=== PATIENT | female | born 1945 | race Caucasian/White ===

== ENCOUNTER → 2023-07-30 12:48 | Outpatient (REF) | payer OTHER, SELFPAY | LOC: RAD 12:48 | PROVIDERS: ATTENDING PHYSICIAN Obstetrics & Gynecology; FAMILY PHYSICIAN Family Medicine | DX: N95.0 Postmenopausal bleeding (principal) | CPT/HCPCS: 76830; 76856 ==

== ENCOUNTER → 2023-09-10 07:31 | Outpatient (REF) | payer OTHER, SELFPAY | LOC: PAVMRI 07:31 | PROVIDERS: ATTENDING PHYSICIAN Obstetrics & Gynecology; FAMILY PHYSICIAN Family Medicine | DX: R19.00 Intra-abdominal and pelvic swelling, mass and lump, unspecified site (principal) | CPT/HCPCS: 72197; A9575 ==

== ENCOUNTER → 2024-05-07 14:39 | Outpatient (REF) | payer OTHER, SELFPAY | LOC: WDC 14:39 | PROVIDERS: ATTENDING PHYSICIAN Obstetrics & Gynecology; FAMILY PHYSICIAN Family Medicine | DX: Z12.31 Encounter for screening mammogram for malignant neoplasm of breast (principal) | CPT/HCPCS: 77063; 77067 ==

== ENCOUNTER 2024-11-12 10:42 | Emergency (ER) | payer OTHER, SELFPAY ==
[2024-11-12 10:43] VITALS: BP 187/92
--- NOTE | 2024-11-12 12:18 | ED.GENMED ---
History of Present Illness
General
Chief Complaint: Fall
Time Seen by Provider: 11/12/24 11:18
History of Present Illness
History of Present Illness:
79-year-old female with history of hypertension and hyperlipidemia presents to the emergency department for Evaluation of amnesia and a fall in the middle of the night. She states she awoke this morning lying perpendicular to her bed on the floor
with bleeding coming from the mouth but she has no recollection of how this occurred. She denies any other injuries or pain. She was able to get herself up and back to bed. Does not take anticoagulants. Currently denies neck pain, chest pain,
shortness of breath, recent fevers, or extremity discomfort
Review of Systems
Review of Systems
Allergies reviewed?: Yes
All Other Systems: ROS reviewed and negative except as documented in HPI and ROS
Phy Exam
Physical Exam
Physical Exam:
GEN: Well appearing, NAD, WDWN
HEENT: Oral mucosa moist, no scleral icterus, no nasal congestion. Superficial wound to the inner lower lip with no active bleeding, no dental injury
Cardiac: Regular rate
Lung: No respiratory distress, no tachypnea
MSK: No gross deformity or injuries, no cervical, thoracic, or lumbar spinal tenderness. Pelvis is stable with no crepitus
Skin: Good color, no pallor or jaundice, no rashes
Neuro: AO x3; CN II-XII grossly intact. BUE strength 5/5 in all hardy, sensation intact and symmetric. BLE strength 5/5 in all hardy, sensation intact and symmetric
Psych: Calm, cooperative
Course
Orders/Labs/Results
Orders:
Orders
11/12/24 11:32
CT Head W/o Iv Contrast Urgent
Comment:
Reason For Exam: fall, amnesia
Vital Signs
Initial and Last Documented VS:
Initial Vital Signs
Temp Pulse Resp BP Pulse Ox
98.0 F 88 18 187/92 99
11/12/24 10:43 11/12/24 10:43 11/12/24 10:43 11/12/24 10:43 11/12/24 10:43
Last Documented Vital Signs
Temp Pulse Resp BP Pulse Ox
98.0 F 88 17 187/92 99
11/12/24 10:43 11/12/24 10:43 11/12/24 12:40 11/12/24 10:43 11/12/24 12:19
MDM/Problems Addressed
MDM/Problems Addressed:
CT of the head shows no acute traumatic findings. She is neurologically intact. I suspect she had a fall in the middle of the night with retrograde amnesia due to blunt head injury. Clinically appears well with no neurologic findings at this
time. Suitable for discharge home
*Pulse Oximetry
SaO2: 99
Oxygen Mode of Delivery: Room air
Patient hypoxic: no
*Critical Care Note
Total Time (30-74mins, 75-104mins- exclusive of procedures): Not Applicable
ED Attending Note
-
Portions of this chart may have been created with voice recognition software.� Occasional wrong word or��sound alike� substitutions may have occurred due to the inherent limitations of voice recognition software.
Discharge Plan
Departure
Patient Disposition: Home (Routine Discharge)
Date of Disposition: 11/12/24
Time of Disposition: 13:28
Patient with high blood pressure during this ER visit?: No
Discharge Problem:
Fall, Laceration of lip
Instructions: Preventing falls in adults
Referrals:
Jorge Monge DO [Family Provider, Family Practice]
Interventions
Interventions:
*Risk Screen - Suicide Last Done: 11/12/24 10:43
*General Assessment Last Done: 11/12/24 10:43
*Neglect/Abuse Screening Last Done: 11/12/24 10:43
*ED- Fall Risk Assessment Last Done: 11/12/24 10:43
*ED COVID-19 Vaccine History Last Done: 11/12/24 10:43
*Nursing Disposition Last Done: 11/12/24 13:36
ED-Musculoskeletal Assessment Last Done: 11/12/24 12:38
ED- Neurological Assessment Last Done: 11/12/24 12:38
ED-Skin Assessment Last Done: 11/12/24 12:38
Discharge Date and Time
Discharge Date/Time: 11/12/24 13:41
Print Language: HEBREW
== END 2024-11-12 13:41 | disposition home or self-care (01) ==
LOC: EMR 10:42
PROVIDERS: EMERGENCY PHYSICIAN Emergency Medicine; FAMILY PHYSICIAN Family Medicine
DX: S01.511A Laceration without foreign body of lip, initial encounter (principal); W19.XXXA Unspecified fall, initial encounter; E78.5 Hyperlipidemia, unspecified; I10 Essential (primary) hypertension
CPT/HCPCS: 99284; 70450

== ENCOUNTER → 2024-11-21 10:44 | Outpatient (REF) | payer OTHER, SELFPAY | LOC: PAVMRI 10:44 | PROVIDERS: ATTENDING PHYSICIAN Family Medicine | DX: R41.3 Other amnesia (principal) | CPT/HCPCS: 70551 ==